=== PATIENT | female | born 1970 | race Caucasian/White ===

== ENCOUNTER 2019-01-21 08:15 | Day surgery (SDC) | payer OTHER ==
[2019-01-20 15:27] LABS: BASOPHILS 0.3 % (0-2); EOSINOPHILS 1.8 % (0-7); HEMOGLOBIN 14.2 g/dL (12-16); IMMATURE GRANULOCYTES 0.2 % (0-5); LYMPHOCYTES 28.9 % (15-50); MCH 31.5 pg (26.0-34.0); MCV 95.3 fL (80.0-100.0); MEAN PLATELET VOLUME 9.8 fL (7.4-10.4); MONOCYTES 7.1 % (2-11); NEUTROPHILS 61.7 % (40-80); PLATELET COUNT 252 10x3/uL (130-400); RBC 4.51 10x6/uL (4.00-5.40); RDW 13.1 % (11.5-14.5); WBC 6.2 10x3/uL (4.8-10.8)
[2019-01-20 15:45] LABS: CALC OSMOLALITY 285 mosm/kg (275-300); CALCIUM 8.5 mg/dL (8.5-10.1); CARBON DIOXIDE 30.6 mmol/L (21.0-32.0); CHLORIDE - SERUM 105 mmol/L (98-107); CREATININE - SERUM 0.7 mg/dL (0.6-1.3); GLUCOSE 110 mg/dL (74-106); POTASSIUM - SERUM 4.3 mmol/L (3.5-5.1); SODIUM 142 mmol/L (136-145); UREA NITROGEN 18 mg/dL (7-18); eGFR NON AFRICAN AMERICAN > 90 mL/min (90-120)
[~2019-01-21] VITALS: Ht 167.6 cm; Wt 76.7 kg
[~2019-01-21 08:15] MED LIST: AMBIEN10 MG PO; CATAPRES0.3 MG PO; CYCLOBENZAPRINE10 MG PO; IRON PO; TRAZODONE HCL150 MG PO; VITAMIN C PO
[2019-01-21 08:42] VITALS: BP 115/75; Ht 167.6 cm; Wt 76.7 kg
[2019-01-21 08:52] LABS: HCG URINE NEGATIVE (NEGATIVE)
[2019-01-21] MEDS ORDERED: DILAUDID2 MG PO (11:28)
--- NOTE | 2019-01-21 11:49 | NUR ---
MESH UNDERWARE IN OVER DRESSINGS ON ADMIT
--- NOTE | 2019-01-21 13:19 | NUR ---
1305 PT AAOX3. SITTING UP EATING ICE. BILATERAL DRESSINGS CDI. ICE PACKS ON SURGICAL SITES BUT NOT DIRECTLY ON SKIN.
--- NOTE | 2019-01-21 13:21 | NUR ---
1315 DR LIANG NOTIFIED THAT PT IS ASKING HER PAIN MEDICATION BE CHANGED FROM DILAUDID TO DEMEROL. PT STATES THAT DILAUDID IS NOT EFFECTIVE AGAINST HER PAIN AND DEMEROL IS. 1325 DR LIANG BROUGHT DEMEROL PRESCRIPTION FOR PT. DILAUDID PRESCRIPTION DESTROYED.
--- NOTE | 2019-01-21 14:33 | NUR ---
1408 IV DC'D. CATHETER TIP INTACT. NO BLEEDING AT SITE. BANDAID APPLIED.
--- NOTE | 2019-02-04 14:22 | OP ---
PATIENT NAME: ALBERTO CARDENAS MEDICAL RECORD: [id number] :72 LOCATION:D.OPS ADMISSION DATE: SURGEON: CONSTANTINE LIANG MD DATE OF OPERATION: 01/21/2019 PREOPERATIVE DIAGNOSES: 1. Bilateral inguinal hernias. 2. Hemorrhoids. 3. Tobacco dependence syndrome. 4. Anal skin tags. POSTOPERATIVE DIAGNOSES: 1. Bilateral inguinal hernias. 2. Hemorrhoids. 3. Tobacco dependence syndrome. 4. Anal skin tags. PROCEDURES: Bilateral inguinal exploration. SURGEON: Constantine Liang MD REPORT OF PROCEDURE: The patient's lower abdomen and pelvis were prepped and draped in sterile fashion. We approached the right side first because this was felt to be the larger of the 2 hernias on physical exam. An oblique incision was made starting in the inguinal ligament extending out towards the lateral abdomen. Electrocautery was used to dissect through the subcutaneous tissues to the external oblique fascia. This fascia was opened up at the external ring and extended out superiorly and laterally. I found the round ligament. The ilioinguinal nerve was found and high ligated. The round ligament was clamped proximally and distally and ligated. The patient had a small opening present where the round ligament projected through, but otherwise there was no sign of inguinal floor defect. We extended our external oblique incision out laterally towards the anterior superior iliac crest. As we did this, we could feel some laxity to the tissue on the right lower quadrant, more in line with where the patient had been describing the bulging. I did not see evidence of a true hernia defect, but there was some laxity to the tissues. I did a tedious examination of the area trying to find any sign of an actual hernia defect present, which I could find none. I eventually had released some of the fascial tissues. There were in this area for inspection and elected just to reapproximate these tissues a little more tightly to help with the laxity that was present in the right lower quadrant. The tissues involved the inferior aspect of the external oblique fascia down to the underlying fascial tissue close to the rectus musculature. This was done with an 0 Vicryl in a running fashion with good approximation of the tissue. There did not appear to be any tension on this. We then irrigated out the wound with normal saline. The external oblique fascia was closed with running 2-0 Vicryl, Veronica's was closed with interrupted 3-0 Vicryl and the skin was closed with running subcutaneous 5-0 Monocryl. A 10 mL of 0.25% Marcaine with epinephrine was infused into the surrounding tissues. We then approached the left side. Again, an oblique incision was made above the inguinal ligament and electrocautery was used to dissect through the subcutaneous tissues. We came down to the external oblique fascia and this was opened up to the external ring using electrocautery. We inspected this area again, we dissected the fatty tissue off of the anterior fascial layer and also extended our external oblique fascial incision out superior and laterally, inspected all of these tissues and I never found any OPERATIVE REPORT [id number] ALBERTO CARDENAS evidence of a hernia defect present. I did not feel that there was much laxity to the tissue in this area either. For this reason, I went ahead and elected not to perform any sort of a mesh repair. The wound was irrigated out with normal saline. The external oblique fascia was closed with running 2-0 Vicryls. The Veronica's was closed with interrupted 3-0 Vicryl and the skin was closed with running subcutaneous 5-0 Monocryl. A total of 10 mL of 0.25% Marcaine with epinephrine was infused into the surrounding tissues. The wound was dressed appropriately. COMPLICATIONS: None. CONDITION: Stable. ANESTHESIA: General endotracheal and local. BLOOD LOSS: Minimal. 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
== END 2019-01-21 14:16 | disposition home or self-care (01) ==
LOC: D.OPS 08:15 → D.PAN 10:15 → D.OPS 10:25
PROVIDERS: ATTEND Surgery
DX: K40.20 Bilateral inguinal hernia, without obstruction or gangrene, not specified as recurrent (principal); K64.9 Unspecified hemorrhoids; F17.200 Nicotine dependence, unspecified, uncomplicated; K64.4 Residual hemorrhoidal skin tags